=== PATIENT | female | born 1980 | race Caucasian/White ===

== ENCOUNTER 2019-02-27 18:49 | Inpatient (IN) | payer OTHER ==
[~2019-02-27] VITALS: Ht 172.7 cm; Wt 82.8 kg
--- NOTE | 2019-02-27 19:39 | NUR ---
PT BIBA TO ED FROM [facility] S/P DRINKING TEA CREATED FROM [employer]. PER JEANNIE PT WAS FOUND ALTERED AROUND 1700 IN [facility]. SPOKE WITH SANJAY REED FROM [facility] WHO REPORTS PT WAS FOUND AWAKE AND ALTERED, NON VERBAL WITH PUPILS 9MM IMELDA, WITH HR 140'S. 911 WAS CALLED AND PT WAS TRANSFERRED VIA ALS TO ED. UPON ASSESSMENT PT IS AWAKE AND RESPONSIVE WITH INCOMPREHENSIBLE SPEECH. UNABLE TO ANSWER ORIENTATION QUESTIONS. PT IS TACHYCARDIC WITH HR INCREASING TO HIGH 150, ST. PUPILS 8MM IMELDA AND SLUGGISH. PT IS ABLE TO MOVE ALL 4 EXTREMETIES WITH NO WEAKNESS NOTED. GUARDS AT BEDSIDE FOR SAFETY. CONNECTED TO MONITOR. AWAITING MSE.
--- NOTE | 2019-02-27 19:45 | NUR ---
DR BOWEN AT BEDSIDE FOR MSE.
--- NOTE | 2019-02-27 19:59 | NUR ---
PT HAS COMPREHENSIBLE SPEECH AT THIS TIME. ABLE TO FOLLOW SIMPLE COMMANDS. REFUSES TO ANSWER ORIENTATION QUESTIONS AND STS "ILL TELL YOU LATER." WHEN ASKED WHAT HAPPENED AND WHERE PT IS PT REPORTS "TATTOO HEAVEN."
--- NOTE | 2019-02-27 20:03 | NUR ---
[T TAKEN OFF SAT 95% ON ROOM AIR AT THIS TIME.
--- NOTE | 2019-02-27 20:08 | NUR ---
PT TAKEN TO CT.
--- NOTE | 2019-02-27 20:34 | NUR ---
PT ENCOURAGED TO URINATE IN BED HERN[place]NDE[place] AT THIS TIME. PT UNABLE TO URINATE.
--- NOTE | 2019-02-27 20:44 | NUR ---
XRAY AT BEDSIDE.
[2019-02-27 21:11] LABS: BASOPHIL % 0.3 % (0-2); PLATELET COUNT 273 x10^3mcL (130-400); RED CELL DISTRIBUTION WIDTH 13.6 % (11.5-14.5)
[2019-02-27 21:20] LABS: CALCIUM 9.1 mg/dL (8.5-10.1); CHLORIDE SERUM 103 mmol/L (98-107); GFR1 > 60 mL/min; GLUCOSE SERUM 118 mg/dL (74-106); POTASSIUM SERUM 3.7 mmol/L (3.5-5.1); SODIUM SERUM 140 mmol/L (136-145)
[2019-02-27 21:29] LABS: ALBUMIN 4.2 g/dL (3.4-5.0); ALKALINE PHOSPHATASE 58 U/L (46-116); ALT/SGPT 20 U/L (14-59); AST/SGOT 15 U/L (15-37); BILIRUBIN TOTAL 0.36 mg/dL (0.20-1.00); CHOLESTEROL 158 mg/dL (<200); TOTAL PROTEIN, SERUM 8.1 g/dL (6.4-8.2)
--- NOTE | 2019-02-27 23:01 | NUR ---
REPORT GIVEN TO SANJAY CARLOS.
--- NOTE | 2019-02-27 23:01 | NUR ---
PT HR REMAINS 140-150. DR BOWEN AWARE.
[2019-02-27 23:10] LABS: AMPHETAMINE QUAL UR NONE DETECTED (See below)
--- NOTE | 2019-02-27 23:17 | NUR ---
PT HEART RATE MAINTAING AROUND 130'S AT THIS TIME. DR BOWEN AWARE. PT OKAY TO SENT UP TO [facility].
--- NOTE | 2019-02-27 23:26 | NUR ---
RECEIVED PT FROM ED VIA GUERNEY, PT IS LETHARGIC, CONFUSED AND DISORIENTED. DOES NOT FOLLOW SIMPLE COMMANDS. NO SOB NOTED, LUNG SOUNDS CTA. O2 AOF=932%, RA. NO S/S OF CHEST PAIN/PRESSURE, SINUS TACHYCARDIA ON THE MONITOR, HR AT 126. NO S/S OF ABDOMINAL DISCOMFORT. URINE INCONTINENT AT THIS TIME. PT HAS INVOLUNTARY MOVEMENTS ON BUE AND BLE. PADDED SIDE RAILS UPX2. CALL LIGHT ON REACH. HOB ELEVATED AT 30 DEG. PRIMARY NURSE BREANNA AT BEDSIDE FOR CONTINUITY OF CARE
[2019-02-27 23:41] VITALS: BP 114/67
[2019-02-27 23:51] VITALS: Ht 172.7 cm; Wt 82.8 kg
[2019-02-28] VITALS (7 sets, daily range): BP systolic 117–153; BP diastolic 76–92
--- NOTE | 2019-02-28 06:31 | NUR ---
NO SIGNIFICANT CHANGES TO REPORT, PT COMPLIED WITH NURSING CARE THROUGHOUT THE SHIFT WITH NO ACUTE EVENTS OVERNIGHT. NO ACUTE DISTRESS OBSERVED AT THIS TIME, PT LAYING IN BED BREATHING EVEN AND UNLABORED. COMFORT AND SAFETY MEASURES MAINTAINED. ALL NEEDS ASSESSED AND ATTENDED TO. CALL LIGHT WITHIN REACH. WILL CONTINUE TO MONITOR AND ENDORSE CARE TO DAY SHIFT NURSE
--- NOTE | 2019-02-28 07:56 | NUR ---
RECEIVED PATIENT FROM SANJAY CARLOS. PATIENT IS A/OX1 PERSON. NO SIGNS OF AGITATION AT THIS TIME, COOPERATIVE. WILL CONTINUE TO MONITOR. SOAP MIXER AT BEDSIDE. WILL AWAIT DR HARVEY TO ARRIVE AND UPDATE ABOUT PLAN OF CARE.
--- NOTE | 2019-02-28 11:49 | NUR ---
PATIENT CONTINUES TO BE CONFUSED, A/OX1 TO PERSON. INCORRECT ANSWERS TO QUESTIONS AT THIS TIME. PATIENT REMOVED IV ACCESS, WILL ATTEMPT IV ACCESS AND WITH ASSIST. WILL AWAIT DR HARVEY TO ARRIVE. CORRECTIONS OFFICERS AT BEDSIDE.
--- NOTE | 2019-02-28 16:15 | NUR ---
PATIENT PULLING ON ROSEN CATHETER AND IV ACCESS. INFORMED DR HARVEY AND RESTRAINTS INITIATED. CORRECTIONS OFFICERS AT BEDSIDE.
--- NOTE | 2019-02-28 18:25 | NUR ---
PATIENT CONTINUES TO HAVE CONFUSION. PRN ATIVAN 1 MG IV GIVEN. WILL ENDORSE TO ONCOMING NURSE. NO SIGNS OF PAIN OR SOB. HOME HEALTH OUTREACH COORDINATOR AT BEDSIDE. RESTRAINTS IN USE, DR HARVEY AWARE.
--- NOTE | 2019-02-28 19:40 | NUR ---
RECEIVED REPORT FROM DAY SHIFT NURSE, THIAGO GRACE. PT IS CONFUSED AND AGITATED. UNABLE TO STATE HER NAME OR PLACE. PUPILS ARE DILATED AND SLUGGIST AT 8MM. TELE #27 READING SINUS TACH. BP 132/85 (94) HR 93. PULSES ARE EVEN AND PALPABLE. NO EDEMA PRESENT. BREATHING IS EVEN AND UNLABORED LUNG SOUNDS CTA. SAO2 99% ON RA. ABD IS SOFT AND NONDISTENDED. BS ARE ACTIVE IN ALL 4Q. ROSEN CATHETER DRAINING DARK YELLOW URINE. DRY, REDNESS ON TOP OF BOTH FEEL. LFA IV INTACT AND PATENT. 4 POINT SOFT RESTRAINTS APPLIED. CORRECTIONAL OFFICERS AT BEDSIDE. WILL CONTINUE TO MONITOR.
--- NOTE | 2019-02-28 19:41 | NUR ---
PRN ATIVAN ADMINISTERED FOR CONFUSION. WILL CONTINUE TO MONITOR.
--- NOTE | 2019-02-28 21:31 | NUR ---
RELEASED RESTRAINT ON PATIENTS RIGHT FOOT. ROSEN CARE COMPLETED. WILL CONTINUE TO MONITOR.
--- NOTE | 2019-02-28 23:34 | NUR ---
DR. HARVEY MADE AWARE THAT PT'S HR IS RANGING FROM 130'S-140'S. NO NEW ORDERS AT THIS TIME. WILL CONT TO MONITOR
--- NOTE | 2019-03-01 02:02 | NUR ---
LEFT FOOT RESTRAINT REMOVED. WILL CONTINUE TO MONITOR. CORRECTIONAL OFFICERS AT BEDSIDE.
[2019-03-01 05:58] VITALS: BP 111/75
--- NOTE | 2019-03-01 06:18 | NUR ---
PT SLEPT IN INTERVALS THROUGHOUT THE NIGHT. NO ACUTE EVENTS OVERNIGHT. COMFORT AND SAFETY MEASURES MAINTAINED. ALL NEEDS ASSESSED AND ATTENDED TO. WILL CONTINUE TO MONITOR AND ENDORSE CARE TO DAY SHIFT NURSE.
--- NOTE | 2019-03-01 07:30 | NUR ---
RECEIVED PATIENT DROWSY, AROUSABLE. ANSWERED QUESTION SLOWLY. DISORIENTED TO PLACE AND TIME. TELE# 27: NSR; HR = 73. NO RESP DSITRESS ON RA. BREATHING SOUND CLEAER IMELDA. O2 SAT 99%. ABD FLAT/SOFT. DENIED PAIN. IVF OF NS 100CC/HR. IV SITE TO LFA INTACT. ROSEN CATH PATENT. DENIED PAIN. DRY SKIN WITH REDNESS TO IMELDA FEET, NO OPENED WOUND. PULSE PALPABLE. ON SOFT WRIST RESTRAINTS. HANDS WARM/PINK. CIW GUARD IN ROOM. CALL LIGHT IN REACH.
--- NOTE | 2019-03-01 08:20 | NUR ---
RELEASED WRIST RESTRAINTS AND LET PATIENT TO HAVE BREAKFAST. FINISHED 40% OF REGULAR DIET BREAKFAST. CALM AND CO-OP TO CARES NOW.
[2019-03-01 08:55] VITALS: BP 121/76
[2019-03-01 11:19] LABS: BASOPHIL % 0.3 % (0-2); PLATELET COUNT 252 x10^3mcL (130-400); RED CELL DISTRIBUTION WIDTH 13.5 % (11.5-14.5)
[2019-03-01 11:36] LABS: ALKALINE PHOSPHATASE 55 U/L (46-116); ALT/SGPT 19 U/L (14-59); AST/SGOT 18 U/L (15-37); BILIRUBIN TOTAL 0.6 mg/dL (0.20-1.00); CALCIUM 8.5 mg/dL (8.5-10.1); CARBON DIOXIDE 23.8 mmol/L (21-32); CHLORIDE SERUM 102 mmol/L (98-107); CREATININE SERUM 0.9 mg/dL (0.6-1.0); GFR1 > 60 mL/min; GLUCOSE SERUM 91 mg/dL (74-106); POTASSIUM SERUM 4.2 mmol/L (3.5-5.1); SODIUM SERUM 135 mmol/L (136-145); TOTAL PROTEIN, SERUM 6.6 g/dL (6.4-8.2)
[2019-03-01 11:39] LABS: ALBUMIN 3.2 g/dL (3.4-5.0)
[2019-03-01 12:28] VITALS: BP 112/68
--- NOTE | 2019-03-01 13:00 | NUR ---
PATIENT HAD 3 BM, FROM SOFT TO LOOSE, INCONT. CALM AMD CO-OP TO CARES.
[2019-03-01 16:32] VITALS: BP 103/67
--- NOTE | 2019-03-01 19:00 | NUR ---
AWAKE/ALERT; JOSE TO MADE NEEDS KNOWN. DISORIENTED TO PLACE AND TIME. ENDORSED CARE TO NOC NURSE.
--- NOTE | 2019-03-01 19:48 | NUR ---
RECEIVED PATIENT IN BED AWAKE X1 WITH NO SIGN OF ACUTE DISTRESS. BREATHING EASY AND NONLABOR SATTING AT 99% RA. TELE# 27 NSR ON MONITOR, NO INDICATION OF CHEST DISCOMFORT NOTED. PATIENT WHEN ASKED DOES'NT KNOW WHERE SHE AT NOT ORIENTED TO DATE AND YEAR. ROSEN TO GRAVITY WITH YELLOW URINE OUTPUT. IV TO LFA INTACT AND INFUSING WELL. WILL CONTINUE TO MONITOR. CIW OFFICERS AT BEDSIDE.
[2019-03-01 21:01] VITALS: BP 104/67
[2019-03-01 23:38] VITALS: BP 104/67
--- NOTE | 2019-03-02 01:52 | NUR ---
APPEAR TO BE SLEEPING THIS TIME, NO SIGN OF DISTRESS NOTED. CIW OFFICERS AT BEDSIDE. WILL CONTINUE TO MONITOR.
--- NOTE | 2019-03-02 05:10 | NUR ---
SLEPT AT LONG INTERVALS, NO INDICATION OF PAIN AND DISCOMFORT NOTED. CHECKED AT INTERVALS FOR NEEDS AND SAFETY.
[2019-03-02 05:50] VITALS: BP 119/78
[2019-03-02 07:34] LABS: CALCIUM 7.7 mg/dL (8.5-10.1); CARBON DIOXIDE 24.7 mmol/L (21-32); CHLORIDE SERUM 104 mmol/L (98-107); CREATININE SERUM 0.9 mg/dL (0.6-1.0); GFR1 > 60 mL/min; GLUCOSE SERUM 86 mg/dL (74-106); MAGNESIUM 1.7 mg/dL (1.8-2.4); POTASSIUM SERUM 4.1 mmol/L (3.5-5.1); SODIUM SERUM 136 mmol/L (136-145)
--- NOTE | 2019-03-02 07:50 | NUR ---
RECEIVED PATIENT SLEEPING IN BED, NO ACUTE DISTRESS NOTED. PATIENT DENIES PAIN. PATIENT IS A/OX2 (PERSON,PLACE), PATIENT UNABLE TO DETERMINE DATE. WILL REINFORCE ANY TEACHING. LUNG SOUNDS CTA, DENIES SOB. ROSEN CATHETER DRAINING TO GRAVITY. GENERALIZED WEAKNESS NOTED. NS IV INFUSING TO LFA AT 100ML/HR, IV SITE CDI& PATENT, NO S/S OF INFILTRATION. CALL LIGHT WITHIN REACH, BED IN LOW POSITION, CIM X2 AT BEDSIDE FOR SAFTEY PRECAUTION.
[2019-03-02 08:36] LABS: BASOPHIL % 0.3 % (0-2); PLATELET COUNT 237 x10^3mcL (130-400); RED CELL DISTRIBUTION WIDTH 13.4 % (11.5-14.5)
--- NOTE | 2019-03-02 09:30 | NUR ---
DR HARVEY MADE AWARE PATIENT MAGNESIUM WAS 1.7.
--- NOTE | 2019-03-02 12:50 | NUR ---
BEGAN BLADDER TRAINING AT THIS TIME. PATIENT AWARE TO NOTIFIY NURSE WHEN FELLING THE URGE TO URINATE OCCURS. WILL CONTINUE TO MONITOR PATIENT.
[2019-03-02 13:08] VITALS: BP 105/57
--- NOTE | 2019-03-02 14:20 | NUR ---
ROSEN CATH REMOVED AT THIS TIME, 300ML OF YELLOW URINE OUTPUT NOTED.
--- NOTE | 2019-03-02 17:37 | NUR ---
PATIENT IS SITTING UP IN BED WASHING UP, NO ACUTE CHANGES NOTED THROUGH OUT SHIFT. PATIENT DENIES PAIN. TELE MONITOR IN PLACE. NS IV INFUSING TO LFA AT 100ML/HR, IV SITE CDI & PATENT, NO S/S OF INFILTRATION. CALL LIGHT WITHIN REACH, BED IN LOW POSITION, CIM GUARD AT BEDSIDE FOR SAFETY PRECAUTION. WILL CONTINUE TO MONITOR.
[2019-03-02 17:56] VITALS: BP 120/70
--- NOTE | 2019-03-02 19:38 | NUR ---
RECEIVED PATIENT IN BED AWAKE WITH NO SIGN OF ACUTE RESPIRATORY DISTRESS, BREATHING EASY AND NONLABOR WITH CLEAR BS SATTING AT 99% RA. TELE#27 NSR ON MONITOR, DENIES CHEST DISCOMFORT. IV TO LFA INTACT AND INFUSING WELL. WILL CONTINUE TO MONITOR. CIW OFFICERS AT BEDSIDE. CALL LIGHT WITHIN REACH.
[2019-03-02 21:14] VITALS: BP 98/69
--- NOTE | 2019-03-02 22:45 | NUR ---
IV INFILTRATED REINSERTED NEW IV LINE TO LEFT HAND G.22 INTACT AND INFUSING WELL.
--- NOTE | 2019-03-03 00:01 | NUR ---
APPEAR TO BE SLEEPING AT THIS TIME BREATHING EASY AND NONLBAOR. CIW OFFICERS AT BEDSIDE.
--- NOTE | 2019-03-03 05:27 | NUR ---
SLEPT AT LONG INTERVALS. DENIES PAIN AND DISCOMFORT THE ENTIRE SHIFT.
[2019-03-03 05:54] VITALS: BP 101/55
--- NOTE | 2019-03-03 07:47 | NUR ---
A+OX4, NO RESPRIATORY DISTRESS NOTED, TELE 27, PULSES MODERATE AND EQUAL IMELDA, NO EDEMA NOTED, LUNG SOUNDS ACTIVE, VOIDING FREELY, VOIDING FREELY, GENERALIZED WEAKNESS, DRY ERYTHEMA TO IMELDA FEET, IV IN L HAND WITH NS @ 100 ML/HR, SITE WNL.
[2019-03-03 08:03] LABS: BASOPHIL % 0.4 % (0-2); PLATELET COUNT 281 x10^3mcL (130-400); RED CELL DISTRIBUTION WIDTH 13.4 % (11.5-14.5)
[2019-03-03 08:12] VITALS: BP 109/78
[2019-03-03 08:12] LABS: CALCIUM 8.3 mg/dL (8.5-10.1); CARBON DIOXIDE 24.7 mmol/L (21-32); CHLORIDE SERUM 104 mmol/L (98-107); CREATININE SERUM 0.8 mg/dL (0.6-1.0); GFR1 > 60 mL/min; GLUCOSE SERUM 93 mg/dL (74-106); POTASSIUM SERUM 4.8 mmol/L (3.5-5.1); SODIUM SERUM 137 mmol/L (136-145)
--- NOTE | 2019-03-03 10:18 | NUR ---
PT COMPLAINING OF DIZZINESS. DR HARVEY NOTIFIED AND ORDERED 25 MG PO ANTIVERT X1. PT GIVEN ANTIVERT PO. NO RESPRIATORY DISTRESS NOTED, DARLIN AT BEDSIDE. PT NOTIFIED THAT SHE WILL BE DC TODAY. CALL LIGHT WITHIN REACH.
[2019-03-03 10:28] VITALS: BP 109/78
--- NOTE | 2019-03-03 12:02 | NUR ---
PT GIVEN DC INSTRUCTIONS AND VERBALIZED UNDERSTANDING. DC PACKET GIVEN TO ARIANNE AT BEDSIDE. ARIANNE AT BEDSIDE NOTIFIED THAT PT READY FOR PICKUP. IV REMOVED WITH CATHETER INTACT, GAUZE AND TAPE PLACED ON SITE, SITE WNL. TELE 27 REMOVED AND RETURNED TO [facility]. PT OFF UNIT VIA WC ESCORTED BY DARLIN.
== END 2019-03-03 12:05 | disposition other institution (70) | DRG 917 ==
LOC: ED 18:49 → DU 22:16
PROVIDERS: Internal Medicine; Specialist; ADMIT Internal Medicine
DX: T62.2X1A Toxic effect of other ingested (parts of) plant(s), accidental (unintentional), initial encounter (principal); G92 Toxic encephalopathy; R73.03 Prediabetes; M47.895 Other spondylosis, thoracolumbar region; F12.10 Cannabis abuse, uncomplicated; E66.9 Obesity, unspecified; R00.0 Tachycardia, unspecified; Y92.143 Cell of prison as the place of occurrence of the external cause; Z68.27 Body mass index [BMI] 27.0-27.9, adult; Z71.51 Drug abuse counseling and surveillance of drug abuser
CPT/HCPCS: 97116-GP; 97530-GP; G0378; G0480; J1644; J2060; J3490; J7030; J8597; Q0092